=== PATIENT | male | born 2000 | race Caucasian/White ===

== ENCOUNTER 2024-11-25 05:32 | Emergency (ER) | payer MEDICAID ==
[~2024-11-25] VITALS: Ht 190.5 cm; Wt 96.2 kg
[2024-11-25] MEDS ORDERED: CYCL-1 PO (08:01)
[2024-11-25 08:13] VITALS: BP 116/68; PULSE 76; RESP 14; TEMP 98.2; O2SAT 99
== END 2024-11-25 08:19 | disposition home or self-care (01) ==
LOC: ER 05:32
DX: S16.1XXA Strain of muscle, fascia and tendon at neck level, initial encounter (principal); S00.81XA Abrasion of other part of head, initial encounter; S60.511A Abrasion of right hand, initial encounter; W19.XXXA Unspecified fall, initial encounter; Y93.89 Activity, other specified; Y92.89 Other specified places as the place of occurrence of the external cause; Y99.8 Other external cause status
CPT/HCPCS: 70450; 72125; 99284